=== PATIENT | female | born 1930 | race Caucasian/White ===

== ENCOUNTER 2018-07-31 11:47 | Emergency (ER) | payer MEDICARE, BC ==
[2018-07-31] MEDS ORDERED: Sodium Chloride 0.9% 10 ML Syringe FLUSH PRN (11:53)
--- NOTE | 2018-07-31 12:24 | CT ---
[id number] CT/CT Head Stroke Protocol Exam: CT Head Stroke Protocol Clinical Data: NEUROLOGIC DEFICIT COMPARISON: NO PREVIOUS SIMILAR EXAM IS AVAILABLE. FINDINGS: There is no mass or mass effect. There is no hemorrhage or hydrocephalus. There are no extra-axial fluid collections. There are no sites of abnormal attenuation. There appears to the hyperdense middle cerebral artery sign on the right. This is seen on image 19, series 2. Report called at 12:20 PM, on July 31, 2018. IMPRESSION: ASPECT SCORE 10. HYPERDENSE MIDDLE CEREBRAL ARTERY SIGN ON RIGHT. Javier Johnson MD 07/31/18 [id number] Thank you for allowing us to participate in the care of your patient.
--- NOTE | 2018-07-31 12:29 | EDM.PDOC ---
ED HPI GENERAL MEDICAL PROBLEM - General Stated Complaint: CODE GREEN Time Seen by Provider: 07/31/18 11:47 Source of Information: Reports: Patient History Limitations: Reports: No Limitations - History of Present Illness INITIAL COMMENTS - FREE TEXT/NARRATIVE: Pt. presents to ER via EMS. EMS states that symptoms started at 11:25 AM. Family states that she has a history of a-fib, cardioembolic CVA, and previous TIA. She is on coumadin and her last INR was 1.2 2 days ago. Family states that she has not had any recent trauma. No recent illness. Pt. initially was completely obtunded with significant L sided facial droop and L arm weakness. She was unable to follow commands. Shortly after arrival to ER, the patient was able to speak but was dysarthric and her strength in her L arm had improved somewhat. She complained only of some headache. Denies any chest pain or shortness of breath. Family states that the symptoms are very similar to her previous cerebrovascular events. Daughter stated that she had some confused speech earlier in the week, and states that she was experiencing some drooling yesterday but those symptoms have resolved prior to the events of the AM. Onset: Today Location: Reports: Generalized Associated Symptoms: Reports: Headaches. Denies: Chest Pain, Fever/Chills, Nausea/Vomiting - Related Data Allergies Allergy/AdvReac Type Severity Reaction Status Date / Time lisinopril Allergy Cannot Verified 05/15/15 13:05 Remember Home Meds: Home Meds Metoprolol Tartrate 50 mg PO BID 05/23/14 [History] NIFEdipine [Nifedipine ER] 1 tab PO DAILY 05/23/14 [History] atorvaSTATin [Lipitor] 20 mg PO BEDTIME 05/23/14 [History] cloNIDine HCl [Catapres] 0.1 mg PO DAILY PRN 05/23/14 [History] Clopidogrel [Plavix] 75 mg PO BEDTIME 03/05/15 [History] Social & Family History - Living Situation & Occupation Living situation: Reports: ED ROS GENERAL - Review of Systems Review Of Systems: See Below Constitutional: Reports: No Symptoms HEENT: Denies: Vertigo, Vision Change Respiratory: Reports: No Symptoms Cardiovascular: Reports: No Symptoms Endocrine: Reports: No Symptoms GI/Abdominal: Reports: No Symptoms : Reports: No Symptoms Musculoskeletal: Reports: No Symptoms, Other (see HPI) Skin: Reports: No Symptoms Neurological: Reports: Headache, Other (see HPI) Psychiatric: Reports: No Symptoms Hematologic/Lymphatic: Reports: No Symptoms Immunologic: Reports: No Symptoms ED EXAM, GENERAL - Physical Exam Exam: See Below Exam Limited By: No Limitations General Appearance: Alert, Obtunded Eye Exam: Bilateral Eye: EOMI, Normal Fundi, Normal Inspection, PERRL Ears: Normal External Exam, Normal Canal, Hearing Grossly Normal, Normal TMs Nose: Normal Inspection, Normal Mucosa, No Blood Throat/Mouth: Normal Inspection, Normal Lips, Normal Teeth, Normal Gums, Normal Oropharynx, Normal Voice, No Airway Compromise Head: Atraumatic, Normocephalic Neck: Normal Inspection, Supple, Non-Tender, Full Range of Motion Respiratory/Chest: No Respiratory Distress, Lungs Clear, Normal Breath Sounds, No Accessory Muscle Use, Chest Non-Tender Cardiovascular: Normal Peripheral Pulses, No Edema, No Gallop, No JVD, Irregularly Irregular Peripheral Pulses: 3+: Radial (L), Radial (R), Dorsalis Pedis (L), Dorsalis Pedis (R) GI/Abdominal: Normal Bowel Sounds, Soft, Non-Tender, No Organomegaly, No Distention, No Abnormal Bruit, No Mass (Female) Exam: Deferred Rectal (Female) Exam: Deferred Back Exam: Normal Inspection, Full Range of Motion, NT Extremities: Normal Inspection, Normal Range of Motion, Non-Tender, No Pedal Edema, Normal Capillary Refill Neurological: Alert, Oriented, Slow to Respond, Sensory/Motor Deficit ( Resolving L sided facial droop and L sided weakness), Other (See HPI. Pt. is more alert. Able now to answer questions. Alert to time, date and place which is an improvement.) Psychiatric: Normal Affect, Normal Mood Skin Exam: Warm, Dry, Intact, Pallor Lymphatic: No Adenopathy Course - Orders/Labs/Meds Orders: Active Orders 24 hr Category Date Time Status EKG Documentation Completion [RC] STAT Care 07/31/18 11:53 Ordered Ang Head [CT] Stat Exams 07/31/18 12:09 Ordered Ang Neck [CT] Stat Exams 07/31/18 12:10 Ordered Head wo Cont [CT] Stat Exams 07/31/18 11:52 Ordered CBC WITH AUTO DIFF [HEME] Stat Lab 07/31/18 11:53 Ordered COMPREHENSIVE METABOLIC PN,CMP [CHEM] Stat Lab 07/31/18 11:53 Ordered CRP [C-REACTIVE PROTEIN] [CHEM] Stat Lab 07/31/18 11:53 Ordered CULTURE BLOOD [BC] Stat Lab 07/31/18 11:53 Ordered CULTURE BLOOD [BC] Stat Lab 07/31/18 11:53 Ordered INR,PT,PROTHROMBIN TIME [COAG] Stat Lab 07/31/18 11:53 Ordered LACTIC ACID [CHEM] Stat Lab 07/31/18 11:53 Ordered MAGNESIUM [CHEM] Stat Lab 07/31/18 11:53 Ordered PHOSPHORUS [CHEM] Stat Lab 07/31/18 11:53 Ordered TROPONIN I [CHEM] Stat Lab 07/31/18 11:53 Ordered UA W/MICROSCOPIC [URIN] Stat Lab 07/31/18 11:53 Ordered Sodium Chloride 0.9% [Saline Flush] Med 07/31/18 11:53 Ordered 10 ml FLUSH ASDIRECTED PRN Blood Culture x2 Reflex Set [OM.PC] Stat Oth 07/31/18 11:53 Ordered Peripheral IV Insertion Adult [OM.PC] Routine Oth 07/31/18 11:53 Ordered Medication Orders Sodium Chloride (Saline Flush) 10 ml FLUSH ASDIRECTED PRN PRN Reason: Keep Vein Open Meds: Medications Generic Name Dose Route Start Last Admin Trade Name Freq PRN Reason Stop Dose Admin Sodium Chloride 10 ml 07/31/18 11:53 Saline Flush FLUSH ASDIRECTED PRN Keep Vein Open - Radiology Interpretation Free Text/Narrative:: CT brain without contrast showed questionable R MCA - Re-Assessments/Exams Free Text/Narrative Re-Assessment/Exam: 07/31/18 12:52 Pt. symptoms are improving. Initial NIH scale was 13 was 1147. Follow-up was 7 at 1240. Departure - Departure Time of Disposition: 13:13 Disposition: DC/Tfer to Acute Hospital 02 Condition: Critical Clinical Impression: CVA (cerebral vascular accident) - Discharge Information - Problem List Review Problem List Initiated/Reviewed/Updated: Yes - My Orders Last 24 Hours: My Active Orders 07/31/18 11:52 Head wo Cont [CT] Stat 07/31/18 11:53 EKG Documentation Completion [RC] STAT CBC WITH AUTO DIFF [HEME] Stat COMPREHENSIVE METABOLIC PN,CMP [CHEM] Stat CRP [C-REACTIVE PROTEIN] [CHEM] Stat CULTURE BLOOD [BC] Stat CULTURE BLOOD [BC] Stat INR,PT,PROTHROMBIN TIME [COAG] Stat LACTIC ACID [CHEM] Stat MAGNESIUM [CHEM] Stat PHOSPHORUS [CHEM] Stat TROPONIN I [CHEM] Stat UA W/MICROSCOPIC [URIN] Stat Sodium Chloride 0.9% [Saline Flush] 10 ml FLUSH ASDIRECTED PRN Blood Culture x2 Reflex Set [OM.PC] Stat Peripheral IV Insertion Adult [OM.PC] Routine 07/31/18 12:09 Ang Head [CT] Stat 07/31/18 12:10 Ang Neck [CT] Stat - Assessment/Plan Last 24 Hours: My Active Orders 07/31/18 11:52 Head wo Cont [CT] Stat 07/31/18 11:53 EKG Documentation Completion [RC] STAT CBC WITH AUTO DIFF [HEME] Stat COMPREHENSIVE METABOLIC PN,CMP [CHEM] Stat CRP [C-REACTIVE PROTEIN] [CHEM] Stat CULTURE BLOOD [BC] Stat CULTURE BLOOD [BC] Stat INR,PT,PROTHROMBIN TIME [COAG] Stat LACTIC ACID [CHEM] Stat MAGNESIUM [CHEM] Stat PHOSPHORUS [CHEM] Stat TROPONIN I [CHEM] Stat UA W/MICROSCOPIC [URIN] Stat Sodium Chloride 0.9% [Saline Flush] 10 ml FLUSH ASDIRECTED PRN Blood Culture x2 Reflex Set [OM.PC] Stat Peripheral IV Insertion Adult [OM.PC] Routine 07/31/18 12:09 Ang Head [CT] Stat 07/31/18 12:10 Ang Neck [CT] Stat Plan: Discussed case with Dr. Dawson. He advised to start the patient on TPA given her continued neurologic deficit. He understands that she is anticoagulated but her INR is subtheraputic. Pt. platelet count is well WNL. Discussed findings with patient and family who are in agreement regarding plan of care. All questions were answered. She will be transported to [facility] as a stroke code via ALS ambulance (ground).
[2018-07-31] MEDS ORDERED: Iopamidol 612 MG/ML 100 ML Bottle IVPUSH ONE (12:43)
[2018-07-31 12:48] LABS: CHLORIDE,CL 102 mmol/L (98-107); SODIUM,NA 140 mmol/L (136-145)
[2018-07-31 12:49] LABS: ANION GAP 13.1 mmol/L (10-20)
--- NOTE | 2018-07-31 15:13 | CT ---
[id number] CT/CTA Head Neck Exam: CTA Head Neck Clinical Data: NEUROLOGIC DEFICIT COMPARISON: CORRELATION IS MADE WITH THE EARLIER PLAIN CT BRAIN FINDINGS: There is suggestion of a tiny partially obstructing embolus in the angular branch of the right middle cerebral artery today on image 93, series 6. This corresponds to the finding seen on plain CT brain earlier today. There is no infarction. The collateral score is good. Report called at the time of the exam. IMPRESSION: PARTIALLY OBSTRUCTING EMBOLUS OF RIGHT MIDDLE M3 BRANCH. Javier Johnson MD 07/31/18 [phone] Thank you for allowing us to participate in the care of your patient.
== END 2018-07-31 13:28 | disposition short-term general hospital (02) ==
LOC: VM.ED 11:47
DX: I63.9 Cerebral infarction, unspecified (principal); I48.91 Unspecified atrial fibrillation; Z88.8 Allergy status to other drugs, medicaments and biological substances; Z79.899 Other long term (current) drug therapy
CPT/HCPCS: 36415; 70450; 70496; 70498; 80053; 83605; 83735; 84100; 84484; 85025; 85610; 86140; 87040; 93005; 96374; 96376; 99284; 99291; 99292; Q9967

== ENCOUNTER 2018-09-02 07:11 | Observation (INO) | payer MEDICARE, BC ==
[2018-09-02] MEDS ORDERED: Sodium Chloride 0.9% 10 ML Syringe FLUSH PRN (07:21)
--- NOTE | 2018-09-02 07:59 | CR ---
[id number] RAD/RAD Chest PA or AP 1V EXAM: FRONTAL CHEST INDICATION: Weakness. COMPARISON: March 05, 2015. DISCUSSION: Borderline heart size without evidence of congestive heart failure. Hypoinflation. Tortuous thoracic aorta. IMPRESSION: 1. Low lung volumes. Thomas Hickman MD 09/02/18 0758 Thank you for allowing us to participate in the care of your patient.
[2018-09-02] MEDS ORDERED: Metoprolol Tartrate 5 MG/5 ML SDV IVPUSH ONE (08:16)
--- NOTE | 2018-09-02 08:19 | CT ---
[id number] CT/CT Head WO IV EXAM: CT Head WO IV CLINICAL DATA: WEAKNESS COMPARISON: CORRELATION IS MADE WITH THE EXAM OF JULY 31, 2018. FINDINGS: There is no mass or mass effect. There is no hemorrhage or hydrocephalus. There are no extra-axial fluid collections. There are no sites of abnormal attenuation. IMPRESSION: NO PLAIN CT EVIDENCE OF ACUTE INTRACRANIAL PROCESS. Javier Johnson MD 09/02/18 0818 Thank you for allowing us to participate in the care of your patient.
[2018-09-02 08:20] LABS: CHLORIDE,CL 104 mmol/L (98-107); SODIUM,NA 141 mmol/L (136-145)
[2018-09-02 08:22] LABS: ANION GAP 11.1 mmol/L (10-20)
[2018-09-02] MEDS ORDERED: Furosemide 40 MG/4 ML VIAL IV ONE (08:52)
--- NOTE | 2018-09-02 08:58 | EDM.PDOC ---
ED HPI GENERAL MEDICAL PROBLEM - General Chief Complaint: Neuro Symptoms/Deficits Stated Complaint: dizziness Time Seen by Provider: 09/02/18 07:16 Source of Information: Reports: Patient, EMS History Limitations: Reports: No Limitations - History of Present Illness INITIAL COMMENTS - FREE TEXT/NARRATIVE: Please use ER history and physical as admission H and P. Patient presents to the ED with complaints of dizziness and hypertension. Prior stroke history from July 2018. Patient does have some residual left sided weakness and mild dysarthria. Chronic atrial fibrillation with anticoagulation by Eliquis. She denies headache, chest pain, sob, abdominal pain, blood in urine or stool. No fevers, chills or recent illness. No numbness or tingling to extremities or face. Walks with walker. In visiting with primary provider her blood pressures have been running in the 140-150 range systolic. Location: Reports: Generalized Treatments [employer] PHYSICIST: Reports: Acetaminophen - Related Data Allergies Allergy/AdvReac Type Severity Reaction Status Date / Time lisinopril Allergy Cannot Verified 09/02/18 07:35 Remember Home Meds: Home Meds Metoprolol Tartrate 50 mg PO BID 05/23/14 [History] Acetaminophen 650 mg Q4H PRN 09/02/18 [History] Apixaban [Eliquis] 5 mg BID 09/02/18 [History] Aspirin 81 mg DAILY 09/02/18 [History] Bisacodyl [Ducodyl] 10 mg PO DAILY PRN 09/02/18 [History] Cholecalciferol (Vitamin D3) [Vitamin D3] 2,000 unit DAILY 09/02/18 [History] Cyanocobalamin/Folic AC/Vit B6 [Folbee] 1 tab DAILY 09/02/18 [History] Docusate Sodium 100 mg BID 09/02/18 [History] Fish Oil/[place]-3 Fatty Acids [Fish Oil 1,000 MG] 1 cap TID 09/02/18 [History] Melatonin 6 mg DAILY 09/02/18 [History] Multivitamin [Multi-Day Vitamins] 1 tab DAILY 09/02/18 [History] Ranitidine [Zantac] 150 mg DAILY 09/02/18 [History] atorvaSTATin [Lipitor] 40 mg DAILY 09/02/18 [History] traZODone HCl [Trazodone HCl] 25 mg PO DAILY 09/02/18 [History] Past Medical History HEENT History: Reports: Cataract Cardiovascular History: Reports: Afib, Heart Failure, High Cholesterol, Hypertension, Pacemaker, Other (See Below) Other Cardiovascular History: occlusion and stenosis of unspecified coronary artery Respiratory History: Reports: Asthma, COPD [employer] History: Reports: Other (See Below) Musculoskeletal History: Reports: Osteoarthritis, Other (See Below) Other Musculoskeletal History: rotator cuff tear or rupture of L shoulder. muscle weakness. cervicalalgia Neurological History: Reports: CVA, Other (See Below) Other Neuro History: aphasia. 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 Dermatologic History: Reports: Other (See Below) Other Dermatologic History: actinic keratosis Social & Family History - Tobacco Use Smoking Status *Q: Unknown Ever Smoked - Recreational Drug Use Recreational Drug Use: No - Living Situation & Occupation Living situation: Reports: ED ROS GENERAL - Review of Systems Review Of Systems: See Below Constitutional: Reports: No Symptoms HEENT: Reports: No Symptoms Respiratory: Reports: No Symptoms Cardiovascular: Reports: No Symptoms Endocrine: Reports: No Symptoms GI/Abdominal: Reports: No Symptoms : Reports: No Symptoms Musculoskeletal: Reports: No Symptoms Skin: Reports: No Symptoms Neurological: Reports: Dizziness Psychiatric: Reports: No Symptoms Hematologic/Lymphatic: Reports: No Symptoms Immunologic: Reports: No Symptoms ED EXAM, NEURO - Physical Exam Exam: See Below Exam Limited By: No Limitations General Appearance: Alert, WD/WN, No Apparent Distress Eye Exam: Bilateral Eye: EOMI, Normal Inspection, PERRL Ears: Normal TMs Nose: Normal Inspection, Normal Mucosa, No Blood Throat/Mouth: Normal Inspection, Normal Lips, Normal Teeth, Normal Gums, Normal Oropharynx, Normal Voice, No Airway Compromise Head Exam: Atraumatic, Normocephalic Neck: Normal Inspection, Supple, Non-Tender, Full Range of Motion Respiratory/Chest: No Respiratory Distress, Lungs Clear, Normal Breath Sounds, No Accessory Muscle Use, Chest Non-Tender Cardiovascular: Irregularly Irregular (chronic a-fib) Neurological: Alert, Oriented x 3, Other (left sided weakness) Back Exam: Normal Inspection, Full Range of Motion, NT Extremities: Normal Inspection, Normal Range of Motion, Non-Tender, No Pedal Edema, Normal Capillary Refill Psychiatric: Normal Affect, Normal Mood Skin Exam: Warm, Dry, Intact, Normal Color, No Rash EKG INTERPRETATION EKG Date: 09/02/18 Rhythm: A-Fib Rate (Beats/Min): [address] [place]: Normal P-Wave: Absent QRS: Normal ST-T: Normal QT: Normal Course - Vital Signs Last Recorded V/S: Last Vital Signs Temp 36.6 C 09/02/18 07:10 Pulse 89 09/02/18 07:10 Resp 16 09/02/18 07:10 BP 191/128 H 09/02/18 07:10 Pulse Ox 98 09/02/18 07:10 - Orders/Labs/Meds Orders: Active Orders 24 hr Category Date Time Status EKG Documentation Completion [RC] STAT Care 09/02/18 07:21 Ordered COMPREHENSIVE METABOLIC PN,CMP [CHEM] Stat Lab 09/02/18 07:21 Ordered CPK [CREATINE KINASE,CK] [CHEM] Stat Lab 09/02/18 07:21 Ordered MAGNESIUM [CHEM] Stat Lab 09/02/18 07:21 Ordered PRO B-TYPE NATRIUR PEPT,BNPPRO [CHEM] Stat Lab 09/02/18 07:21 Ordered TROPONIN I [CHEM] Stat Lab 09/02/18 07:21 Ordered URINALYSIS W/MICROSCOPIC [UA W/MICROSCOPIC] [URIN] Stat Lab 09/02/18 08:15 Ordered Sodium Chloride 0.9% [Saline Flush] Med 09/02/18 07:21 Ordered 10 ml FLUSH ASDIRECTED PRN Saline Lock Insert [OM.PC] Routine Oth 09/02/18 07:21 Ordered Medication Orders Sodium Chloride (Saline Flush) 10 ml FLUSH ASDIRECTED PRN PRN Reason: Keep Vein Open Labs: Laboratory Tests 09/02/18 09/02/18 Range/Units 07:35 07:35 WBC 7.5 (4.0-10.0) x10^3/uL RBC 4.85 (4.00-5.50) x10^6/uL Hgb 12.0 (12.0-16.0) g/dL Hct 37.9 (33.0-47.0) % MCV 78.1 D (78.0-93.0) fL MCH 24.7 L (26.0-32.0) pg MCHC 31.7 L (32.0-36.0) g/dL RDW Coeff of Laura 24.6 H (10.0-15.0) % Plt Count 209 (130-400) x10^3/uL Neut % (Auto) 55.6 (50.0-80.0) % Lymph % (Auto) 35.0 (25.0-50.0) % [place] % (Auto) 5.8 (2.0-11.0) % Eos % (Auto) 3.3 (0.0-4.0) % Baso % (Auto) 0.3 (0.2-1.2) % PT 11.5 H (9.6-11.4) SEC INR 1.1 L (2.0-3.5) Meds: Medications Generic Name Dose Route Start Last Admin Trade Name Freq PRN Reason Stop Dose Admin Sodium Chloride 10 ml 09/02/18 07:21 Saline Flush FLUSH ASDIRECTED PRN Keep Vein Open Discontinued Medications Generic Name Dose Route Start Last Admin Trade Name Freq PRN Reason Stop Dose Admin Metoprolol Tartrate 5 mg 09/02/18 08:16 Lopressor IVPUSH 09/02/18 08:17 ONETIME ONE - Radiology Interpretation Free Text/Narrative:: Chest x-ray negative for fluid overload Head CT negative for acute process Departure - Departure Time of Disposition: 09:30 Disposition: Refer to Observation Condition: Good Clinical Impression: HTN (hypertension), Dizziness - Discharge Information *PRESCRIPTION DRUG MONITORING PROGRAM REVIEWED*: Not Applicable *COPY OF PRESCRIPTION DRUG MONITORING REPORT IN PATIENT ALIREZA: Not Applicable - Problem List & Annotations (1) Elevated brain natriuretic peptide (BNP) level SNOMED Code(s): 755347998, 448863177 Code(s): R79.89 - OTHER SPECIFIED ABNORMAL FINDINGS OF BLOOD CHEMISTRY Status: Acute Priority: Low Current Visit: Yes (2) HTN (hypertension) SNOMED Code(s): 07907894 Code(s): I10 - ESSENTIAL (PRIMARY) HYPERTENSION Status: Acute Priority: Medium Current Visit: Yes Qualifiers: Hypertension type: unspecified Qualified Code(s): I10 - Essential (primary ) hypertension (3) Dizziness SNOMED Code(s): 761114816, 341590715 Code(s): R42 - DIZZINESS AND GIDDINESS Status: Acute Priority: Low Current Visit: Yes - Problem List Review Problem List Initiated/Reviewed/Updated: Yes - My Orders Last 24 Hours: My Active Orders 09/02/18 07:21 EKG Documentation Completion [RC] STAT COMPREHENSIVE METABOLIC PN,CMP [CHEM] Stat CPK [CREATINE KINASE,CK] [CHEM] Stat MAGNESIUM [CHEM] Stat PRO B-TYPE NATRIUR PEPT,BNPPRO [CHEM] Stat TROPONIN I [CHEM] Stat Sodium Chloride 0.9% [Saline Flush] 10 ml FLUSH ASDIRECTED PRN Saline Lock Insert [OM.PC] Routine 09/02/18 08:15 URINALYSIS W/MICROSCOPIC [UA W/MICROSCOPIC] [URIN] Stat - Assessment/Plan Last 24 Hours: My Active Orders 09/02/18 07:21 EKG Documentation Completion [RC] STAT COMPREHENSIVE METABOLIC PN,CMP [CHEM] Stat CPK [CREATINE KINASE,CK] [CHEM] Stat MAGNESIUM [CHEM] Stat PRO B-TYPE NATRIUR PEPT,BNPPRO [CHEM] Stat TROPONIN I [CHEM] Stat Sodium Chloride 0.9% [Saline Flush] 10 ml FLUSH ASDIRECTED PRN Saline Lock Insert [OM.PC] Routine 09/02/18 08:15 URINALYSIS W/MICROSCOPIC [UA W/MICROSCOPIC] [URIN] Stat Assessment:: hypertension dizziness elevated BNP Plan: Plan 1. Hypertension - start Norvasc 5 mg daily, IV labetolol for sbp> 170, start nicardipine drip if needed 2. Dizziness - ambulation with assist and walker, monitor for improvement when BP decreases, hydration 3. Elevated BNP - monitor for any additional fluid overload, will hydrate at 50 mL/hr, increase lasix, reduce fluids as appropriate 4. Discharge in AM 09/03/18 as appropriate
[2018-09-02] MEDS ORDERED: Sodium Chloride 0.9% 1,000 ML IV SCH (09:00)
[2018-09-02] MEDS ORDERED: amLODIPine 5 MG Tab PO ONE (09:08)
[2018-09-02] MEDS ORDERED: Acetaminophen 325 MG Tab PO PRN (09:56)
[2018-09-02] MEDS ORDERED: Metoprolol Tartrate 5 MG/5 ML SDV IVPUSH PRN (09:59)
[2018-09-02] MEDS: Sodium Chloride 0.9% 1,000 ML IV SCH (12:20)
[2018-09-02] MEDS ORDERED: Bisacodyl 5 MG Tab PO PRN (12:56)
[2018-09-02] MEDS: Famotidine 20 MG Tab PO SCH (13:31)
[2018-09-02] MEDS: Docusate Sodium 100 MG Cap PO SCH ×2 (13:31→20:35)
[2018-09-02] MEDS: Multivitamins with Iron/Calcium/Folic Acid/Minerals Tab PO SCH (13:31)
[2018-09-02] MEDS: Aspirin 81 MG Tab.EC PO SCH (14:01)
[2018-09-02] MEDS: Metoprolol Tartrate 50 MG Tab PO SCH ×2 (14:07→20:35)
[2018-09-02] MEDS ORDERED: traZODone 50 MG Tab PO SCH (20:00)
[2018-09-02] MEDS: Apixaban 2.5 MG Tab PO SCH (20:35)
[2018-09-03] MEDS ORDERED: LORazepam 1 MG Tab PO STA (02:39)
[2018-09-03] MEDS ORDERED: VIT B6 PO SCH (08:00)
[2018-09-03] MEDS ORDERED: atorvaSTATin 40 MG Tab PO SCH (08:00)
[2018-09-03] MEDS ORDERED: Cholecalciferol (Vitamin D3) 1,000 Unit Tab PO SCH (08:00)
[2018-09-03] MEDS ORDERED: FOLIC AC PO SCH (08:00)
[2018-09-03] MEDS ORDERED: CYANOCOBALAMIN PO SCH (08:00)
[2018-09-03] MEDS: Sodium Chloride 0.9% 1,000 ML IV SCH (08:04)
[2018-09-03] MEDS: Aspirin 81 MG Tab.EC PO SCH (08:41)
[2018-09-03] MEDS: Apixaban 2.5 MG Tab PO SCH (08:41)
[2018-09-03] MEDS: Famotidine 20 MG Tab PO SCH (08:42)
[2018-09-03] MEDS: Metoprolol Tartrate 50 MG Tab PO SCH (08:42)
[2018-09-03] MEDS: Multivitamins with Iron/Calcium/Folic Acid/Minerals Tab PO SCH (08:43)
[2018-09-03] MEDS: Docusate Sodium 100 MG Cap PO SCH (08:43)
[2018-09-03 09:46] LABS: ANION GAP 10.4 mmol/L (10-20); CHLORIDE,CL 104 mmol/L (98-107); SODIUM,NA 142 mmol/L (136-145)
[2018-09-03] MEDS ORDERED: amLODIPine 5 MG Tab PO ONE (10:40)
[2018-09-03 12:40] VITALS: BP 124/89
--- NOTE | 2018-09-04 06:02 | PCM.DCSUM1 ---
Discharge Summary - Hospital Course HPI Initial Comments: Pt. is feeling better this AM. Denies any further vertigo. Denies any headache. She was admitted by [facility] with hypertensive crisis and vertigo. She was started on amlodipine 5mg once daily. Her BP has decreased into the 140-150 over 80 range. Her other medications were not changed at this time and will defer further adjustment to her PCP once it is known that she is tolerating the amlodipine well. Diagnosis: Stroke: No Modified Sam Scale: No Symptoms at All Modified [place] Scale Score: 0 - Discharge Data Discharge Date: 09/03/18 Discharge Disposition: DC/Tfer to [facility] Condition: Fair - Patient Summary/Data Consults: Consultations 09/02/18 09:56 PT Evaluation and Treatment [CONS] Routine - Patient Instructions Diet: Usual Diet as Tolerated Driving: Do Not Drive Showering/Bathing: May Shower Notify Provider of: Fever, Increased Pain, Swelling and Redness, Drainage, Nausea and/or Vomiting - Discharge Plan *PRESCRIPTION DRUG MONITORING PROGRAM REVIEWED*: Not Applicable *COPY OF PRESCRIPTION DRUG MONITORING REPORT IN PATIENT ALIREZA: Not Applicable Home Medications: Home Meds Metoprolol Tartrate 50 mg PO BID 05/23/14 [History] Acetaminophen 650 mg Q4H PRN 09/02/18 [History] Apixaban [Eliquis] 5 mg BID 09/02/18 [History] Aspirin 81 mg DAILY 09/02/18 [History] Bisacodyl [Ducodyl] 10 mg PO DAILY PRN 09/02/18 [History] Cholecalciferol (Vitamin D3) [Vitamin D3] 2,000 unit DAILY 09/02/18 [History] Cyanocobalamin/Folic AC/Vit B6 [Folbee] 1 tab DAILY 09/02/18 [History] Docusate Sodium 100 mg BID 09/02/18 [History] Fish Oil/[place]-3 Fatty Acids [Fish Oil 1,000 MG] 1 cap TID 09/02/18 [History] Melatonin 6 mg DAILY 09/02/18 [History] Multivitamin [Multi-Day Vitamins] 1 tab DAILY 09/02/18 [History] Ranitidine [Zantac] 150 mg DAILY 09/02/18 [History] atorvaSTATin [Lipitor] 40 mg DAILY 09/02/18 [History] traZODone HCl [Trazodone HCl] 25 mg PO DAILY 09/02/18 [History] Forms: ED Department Discharge Referrals: Billy Mcdaniel MD [Primary Care Provider] - - Discharge Summary/Plan Comment DC Time >30 min.: Yes Discharge Summary/Plan Comment: Pt. will be discharged. Will continue current medications and continue amlodipine at 5mg once daily. Check blood pressure daily at [facility]. Return to ER if chest pain, shortness of breath, headache, palpitations. - General Info Date of Service: 09/04/18 Functional Status: Reports: Pain Controlled - Review of Systems General: Reports: No Symptoms HEENT: Reports: No Symptoms Pulmonary: Reports: No Symptoms Cardiovascular: Reports: Other (see HPI) Gastrointestinal: Reports: No Symptoms Genitourinary: Reports: No Symptoms Musculoskeletal: Reports: No Symptoms Skin: Reports: No Symptoms Neurological: Reports: No Symptoms Psychiatric: Reports: No Symptoms - Patient Data Vitals - Most Recent: Last Vital Signs Temp 36.9 C 09/03/18 12:00 Pulse 96 09/03/18 12:00 Resp 16 09/03/18 12:00 BP 159/58 H 09/03/18 12:09 Pulse Ox 96 09/03/18 12:00 Weight - Most Recent: 60.691 kg I&O - Last 24 hours: Intake & Output 09/03/18 09/03/18 09/04/18 14:59 22:59 06:59 Intake Total 240 Balance 240 Lab Results - Last 24 hrs: Laboratory Results - last 24 hr 09/03/18 Range/Units 09:00 Sodium 142 (136-145) mmol/L Potassium 3.4 L (3.5-5.1) mmol/L Chloride 104 (98-107) mmol/L Carbon Dioxide 31 (21-32) mmol/L Anion Gap 10.4 (10-20) mmol/L BUN 17 (7-18) mg/dL Creatinine 1.1 H (0.55-1.02) mg/dL Est Cr Clr Drug Dosing 33.09 mL/min Estimated GFR (MDRD) 47 Glucose 166 H (74-106) mg/dL Calcium 9.0 (8.5-10.1) mg/dL Troponin I < 0.017 (<=0.056) ng/mL SHANITA Results - Last 24 hrs: Microbiology 09/02/18 12:18 MRSA Surveillance Culture - Final Nares, Unspecified NO MRSA ISOLATED Med Orders - Current: Current Medications Discontinued Medications Acetaminophen (Tylenol) 650 mg PO Q4H PRN PRN Reason: Pain (Mild 1-3)/fever Last Admin: 09/02/18 22:06 Dose: 650 mg Amlodipine Besylate (Norvasc) 5 mg PO ONETIME ONE Stop: 09/02/18 09:09 Last Admin: 09/02/18 09:14 Dose: 5 mg Amlodipine Besylate (Norvasc) 5 mg PO ONETIME ONE Stop: 09/03/18 10:41 Last Admin: 09/03/18 12:09 Dose: 5 mg Apixaban (Eliquis) [address] [facility] Last Admin: 09/03/18 08:41 Dose: 5 mg Aspirin (Halfprin) [address] [facility] Last Admin: 09/03/18 08:41 Dose: 81 mg Atorvastatin Calcium (Lipitor) [address] [facility] Last Admin: 09/03/18 08:42 Dose: 40 mg Bisacodyl (Dulcolax) 10 mg PO DAILY PRN PRN Reason: Constipation Cholecalciferol (Vitamin D3) 2,[address] [facility] Last Admin: 09/03/18 08:42 Dose: 2,000 units Docusate Sodium (Colace) [address] [facility] Last Admin: 09/03/18 08:43 Dose: 100 mg Famotidine (Pepcid) [address] [facility] Last Admin: 09/03/18 08:42 Dose: 20 mg Furosemide (Lasix) 40 mg IV ONETIME ONE Stop: 09/02/18 08:53 Last Admin: 09/02/18 09:00 Dose: 40 mg Sodium Chloride (Normal Saline) 1,000 mls @ 999 mls/hr IV ASDIRECTED [facility] Last Admin: 09/02/18 08:50 Dose: 999 mls/hr Sodium Chloride (Normal Saline) 1,000 mls @ 50 mls/hr IV ASDIRECTED [facility] Last Admin: 09/03/18 08:04 Dose: 50 mls/hr Lorazepam (Ativan) 1 mg PO ONETIME STA Stop: 09/03/18 02:40 Last Admin: 09/03/18 03:04 Dose: 1 mg Metoprolol Tartrate (Lopressor) 5 mg IVPUSH ONETIME ONE Stop: 09/02/18 08:17 Last Admin: 09/02/18 08:51 Dose: 5 mg Metoprolol Tartrate (Lopressor) 5 mg IVPUSH Q2H PRN PRN Reason: Hypertension Metoprolol Tartrate (Lopressor) [address] [facility] Last Admin: 09/03/18 08:42 Dose: 50 mg Multivitamins/Minerals (Thera M Plus) [address] [facility] Last Admin: 09/03/18 08:43 Dose: 1 tab Cyanocobalamin/Folic Ac/Vit B6 [Folbee] 1 Tab [address] [facility] Last Admin: 09/03/18 08:46 Dose: Not Given Sodium Chloride (Saline Flush) 10 ml FLUSH ASDIRECTED PRN PRN Reason: Keep Vein Open Trazodone HCl (Trazodone) [address] [facility] Last Admin: 09/02/18 20:35 Dose: 25 mg - Exam Quality Assessment: Reports: Supplemental Oxygen General: Reports: Alert, Oriented HEENT: Reports: Pupils Equal, Pupils Reactive, EOMI Neck: Reports: Supple Lungs: Reports: Clear to Auscultation, Normal Respiratory Effort Cardiovascular: Reports: Regular Rate, Regular Rhythm GI/Abdominal Exam: Normal Bowel Sounds, Soft, Non-Tender, No Organomegaly, No Distention, No Abnormal Bruit, No Mass, Pelvis Stable (Female) Exam: Deferred Rectal (Female) Exam: Deferred Back Exam: Reports: Normal Inspection, Full Range of Motion Extremities: Normal Inspection, Normal Range of Motion, Non-Tender, No Pedal Edema, Normal Capillary Refill Skin: Reports: Warm, Dry, Intact Wound/Incisions: Reports: Healing Well Neurological: Reports: No New Focal Deficit Psy/Mental Status: Reports: Alert, Normal Affect, Normal Mood
== END 2018-09-03 13:05 ==
LOC: VM.ED 07:11 → VM.MS 09:09
PROVIDERS: ADMIT Nurse Practitioner Family; ATTEND Nurse Practitioner Family
DX: I16.9 Hypertensive crisis, unspecified (principal); R42 Dizziness and giddiness; I11.0 Hypertensive heart disease with heart failure; I50.9 Heart failure, unspecified; I69.954 Hemiplegia and hemiparesis following unspecified cerebrovascular disease affecting left non-dominant side; I69.922 Dysarthria following unspecified cerebrovascular disease; I25.10 Atherosclerotic heart disease of native coronary artery without angina pectoris; I48.2 Chronic atrial fibrillation; E78.00 Pure hypercholesterolemia, unspecified; J44.9 Chronic obstructive pulmonary disease, unspecified; Z95.0 Presence of cardiac pacemaker; Z79.01 Long term (current) use of anticoagulants; Z79.82 Long term (current) use of aspirin; Z79.899 Other long term (current) drug therapy
CPT/HCPCS: 36415; 70450; 71045; 80048; 80053; 81001; 82550; 83735; 83880; 84484; 85025; 85610; 93005; 93010; 96361; 96374; 96375; 97162-GP; 99217; 99219; 99285; A9270-GY; G0378; J1940; J3490; J7030